=== PATIENT | male | born 1970 | race Asian ===

== ENCOUNTER 2020-06-07 00:27 | Emergency (ER) | payer OTHER ==
[~2020-06-07] VITALS: Ht 170.2 cm; Wt 86.2 kg
[2020-06-07 00:30] VITALS: BP 139/76
--- NOTE | 2020-06-07 00:38 | NUR ---
BIBWIFE C/O BACK PAIN SINCE THURSDAY THAT RADIATES TO L LEG. PER , HX OF BACK PAIN X3 YEARS. "BUT THIS TIME IT STAYED." NO ACUTE DISTRESS NOTED, TOOK MOTRIN 600MG X4 HRS AGO. PLACED ON MONITOR AND PULSE OX. VSS. AMBULATORY.
[2020-06-07] MEDS ORDERED: KETOROLAC TROMETHAMINE INJ 60 MG/2 ML VIAL IM ONE ×2 (00:41→01:00)
[2020-06-07] MEDS ORDERED: LORAZEPAM INJ 2 MG/ML VIAL ONE (00:41)
--- NOTE | 2020-06-07 00:59 | NUR ---
Patient is resting comfortably in bed. Easily aroused. VSS.
[2020-06-07] MEDS ORDERED: LORAZEPAM INJ 2 MG/ML VIAL IM ONE (01:00)
--- NOTE | 2020-06-07 02:12 | NUR ---
Patient discharged to home in stable condition. Written and verbal after care instructions given. Patient verbalizes understanding of instruction and RX. Pt ambulated with steady gait, denies pain.
== END 2020-06-07 02:25 | disposition home or self-care (01) ==
LOC: ER 00:29
DX: M54.42 Lumbago with sciatica, left side (principal)
CPT/HCPCS: 96372 ×2; 99284; J1885; J2060

== ENCOUNTER 2020-06-28 14:27 | Emergency (ER) | payer OTHER ==
[~2020-06-28] VITALS: Ht 172.7 cm; Wt 74.8 kg
[2020-06-28 14:30] VITALS: BP 129/77
--- NOTE | 2020-06-28 15:00 | NUR ---
PT BIBF C/O CHRONIC BACK PAIN AND SCIATICA. WORSE TODAY. PT AAOX4, VSS, RESPIRATIONS EVEN AND UNLABORED ON RA W/ NAD NOTED. PT CONNECTED TO THE MONITOR AND POX
[2020-06-28] MEDS ORDERED: ONDANSETRON HCL/PF 4 MG/2 ML VIAL ONE (15:23)
[2020-06-28] MEDS ORDERED: diphenhydrAMINE HCL 50 MG/ML VIAL ONE (15:23)
[2020-06-28] MEDS ORDERED: MORPHINE SULFATE INJ 4 MG/ML DISP.SYRIN ONE (15:24)
[2020-06-28 15:28] LABS: BASOPHILS # (AUTO) 0.1 /CMM (0.0-0.2); BASOPHILS % (AUTO) 0.9 % (0.0-2.0); EOSINOPHILS % (AUTO) 1.3 % (0.0-6.0); HEMATOCRIT 43 % (39-51); HEMOGLOBIN 14.8 g/dL (13.5-17.5); LYMPHOCYTES # (AUTO) 3.2 /CMM (0.8-4.8); LYMPHOCYTES % (AUTO) 30.5 % (20.0-44.0); MEAN CORPUSCULAR HGB CONC 34 g/dl (31.0-36.0); MEAN CORPUSCULAR VOLUME 88 fL (80-96); MONOCYTES # (AUTO) 0.7 /CMM (0.1-1.30); MONOCYTES % (AUTO) 6.8 % (2.0-12.0); NEUTROPHILS # (AUTO) 6.3 /CMM (1.8-8.9); NEUTROPHILS % (AUTO) 60.5 % (43.0-81.0); PLATELET COUNT (AUTO) 331 /CMM (150-450); RED BLOOD CELL COUNT(AUTO) 4.94 MIL/uL (4.5-6.0); WHITE BLOOD COUNT (AUTO) 10.5 K/uL (4.3-11.0)
[2020-06-28] MEDS: diphenhydrAMINE HCL 50 MG/ML VIAL IV ONE (15:37)
[2020-06-28] MEDS: ONDANSETRON HCL/PF 4 MG/2 ML VIAL IVP ONE (15:37)
[2020-06-28] MEDS: MORPHINE SULFATE INJ 2 MG/ML DISP.SYRIN IV ONE (15:37)
[2020-06-28] MEDS: IV NS 0.9% 1,000 ML BAG IV ONE (15:37)
--- NOTE | 2020-06-28 15:41 | NUR ---
PT MEDICATED ORDERED
[2020-06-28 15:42] LABS: CREATININE 1.3 mg/dL (0.6-1.3); POTASSIUM 4.1 mmol/L (3.5-5.1)
--- NOTE | 2020-06-28 15:43 | NUR ---
assumed care from Maddy FINCH
[2020-06-28 15:53] LABS: ALBUMIN 3.9 g/dL (3.4-5.0); BILIRUBIN,DIRECT 0.1 mg/dL (0.0-0.2); BILIRUBIN,TOTAL 0.4 mg/dL (0.2-1.0); TOTAL PROTEIN, SERUM 7.3 g/dL (6.4-8.2)
--- NOTE | 2020-06-28 16:55 | NUR ---
Patient discharged to home in stable condition. Written and verbal after care instructions given. Patient verbalizes understanding of instruction.
--- NOTE | 2020-06-28 16:55 | NUR ---
Patient @ bedside DC home intruction given agrees to see PMD in 2 days ,verbalized understanding
--- NOTE | 2020-06-28 16:56 | NUR ---
I removed heplock LAC noted cath intact no edema no pain placed dry dressing .Asssited patient to WC appreaciated .
== END 2020-06-28 16:58 | disposition home or self-care (01) ==
LOC: ER 14:31
DX: M54.32 Sciatica, left side (principal); E11.65 Type 2 diabetes mellitus with hyperglycemia; R51 Headache; R07.89 Other chest pain; I10 Essential (primary) hypertension
CPT/HCPCS: 70450; 71045; 72131; 80048; 80076; 85025; 93005; 96361; 96374; 96375; 99285; J1200; J2270; J2405; J7030; 36415